=== PATIENT | female | born 1965 | race Caucasian/White ===

== ENCOUNTER 2016-06-30 14:28 | Emergency (ER) | payer OTHER ==
[~2016-06-30] VITALS: Ht 160 cm; Wt 59.5 kg
[2016-06-30 14:31] VITALS: Ht 160 cm; Wt 59.5 kg
[2016-06-30] MEDS ORDERED: NICARDipine HCL 30 MG CAPSULE PO ONE (15:30)
[2016-06-30] MEDS ORDERED: HYDROCODONE/APAP (5/325) TAB PO ONE (15:30)
[2016-06-30 15:45] LABS: URINE BLOOD (Dip) POC 3+ (NEGATIVE)
[2016-06-30] MEDS ORDERED: IBUP-1542 PO (15:48)
[2016-06-30] MEDS ORDERED: ONDA4TAB8 PO (15:48)
[2016-06-30] MEDS ORDERED: HYDR-906 PO (15:48)
--- NOTE | 2016-06-30 15:58 | ERD ---
ER Documentation Chief Complaint Date/Time DATE: 06/30/16 TIME: 15:52 Chief Complaint headcahe x few weeks, was seen by pmd yesterday, vomiting today HPI 51-year-old female brought in by her daughter complaining of nausea, vomiting and dizziness this morning. Patient is also complaining of headache for 1 month. Patient saw her PMD yesterday she was started on lisinopril and baclofen. Patient has history of hypertension, hyperlipidemia and borderline DM. He also takes simvastatin, metformin and ASA. Patient states that her headache starts from the frontal and radiates to the occipital area. Denies any recent history of fever, chest pain, syncope, cough, shortness of breath, abdominal pain, focal weakness or numbness. ROS All systems reviewed and are negative except as per history of present illness. Medications Home Meds Active Scripts Ondansetron Hcl* (Zofran*) 4 Mg Tablet, 4 MG PO Q6H for NAUSEA AND/OR VOMITING, #30 TAB Prov:BONITA TAVERAS 06/30/16 Hydrocodone/Acetaminophen ([place] 5-325 Tablet) 1 Each Tablet, 1 TAB PO Q6H Y for PAIN, #7 TAB Prov:BONITA TAVERAS 06/30/16 Allergies Allergies: Coded Allergies: No Known Allergy (Unverified , 02/06/13) PMhx/Soc History of Surgery: Yes (C SECTION 4X) Anesthesia Reaction: No Hx Neurological Disorder: No Hx Respiratory Disorders: No Hx Cardiac Disorders: No Hx Psychiatric Problems: No Hx Miscellaneous Medical Probl: Yes (HYPERCHOLESTEROLEMIA, HTN) Hx Alcohol Use: No Hx Substance Use: No Hx Tobacco Use: No Smoking Status: Never smoker Physical Exam Vitals Vital Signs Date Time Temp Pulse Resp B/P Pulse Ox O2 Delivery O2 Flow Rate FiO2 06/30/16 14:31 97.7 74 18 179/80 98 Physical Exam Physical Exam CONST: Well-developed, well-nourished, in no acute distress. Nontoxic in appearance. HEENT: Atraumatic. Normal conjunctiva. EOM intact. TM intact. External ear is normal. Clear oropharnyx without erythema. No uvular deviation. Moist mucous membranes. Supple neck. No meningismus. No submandibular induration. RESP: Clear to auscultation bilaterally. No wheezing. CARDIO: Regular rate and rhythm, no murmurs. ABD: Soft, non tender, non distended. Normal bowel sounds. No McBurney's point tenderness. No guarding or rigidity. No peritoneal signs. SKIN: No petechiae or rashes. BACK: No midline or flank tenderness. EXT: No cyanosis or edema. Distal pulses equal and bilateral. NEURO: Awake and alert, appropriate for age. Results 24 hrs Laboratory Tests Test 06/30/16 15:44 Bedside Urine pH (LAB) 5.0 Bedside Urine Protein (LAB) Negative Bedside Urine Glucose (UA) Negative Bedside Urine Ketones (LAB) Negative Bedside Urine Blood 3+ Bedside Urine Nitrite (LAB) Negative Bedside Urine Leukocyte Esterase (L Negative Current Medications Medications (Trade) Dose Ordered Sig/Anneliese Route PRN Reason Start Time Stop Time Status Last Admin Dose Admin Acetaminophen/ Hydrocodone Bitart ([place] (5/325)) 1 tab ONCE ONCE PO 06/30/16 15:30 06/30/16 15:31 DC 06/30/16 15:39 Nicardipine HCl (Cardene) 30 mg ONCE ONCE PO 06/30/16 15:30 06/30/16 15:31 DC 06/30/16 15:39 PROCEDURE: CT Brain without. CLINICAL INDICATION: Headache. TECHNIQUE: A CT of the brain was performed on multidetector high-resolution CT scanner utilizing axial sections from the skull base through the vertex without contrast. The scan was reviewed in soft tissue brain and high frequency resolution bone algorithm windows. Images were reviewed on a high- resolution PACS workstation. One or more the following does reduction techniques were utilized: Automated exposure control, adjustment of the mA/ or kV according to patient's size, or use of iterative reconstruction technique. The exam CTDI = 44.63 mGy and the DLP = 633.2 mGy-cm. COMPARISON: None available. FINDINGS: The ventricles and sulci are minimal prominent indicative of volume loss. There is no intracranial hemorrhage, mass effect or midline shift. No abnormal intra- axial or extra-axial fluid collections are seen. The ramirez/white matter differentiation is preserved. There are minimal scattered foci of hypoattenuation in the white matter, which are nonspecific in etiology but likely reflect chronic small vessel ischemic changes. The visualized paranasal sinuses are essentially clear. IMPRESSION: 1. No acute intracranial hemorrhage, transcortical infarction or mass effect. 2. Minimal chronic small vessel ischemic changes. 3. Minimal generalized cerebral volume loss. RPTAT: EE .Yasemin Dawkins MD, Date Time Electronically viewed and signed by .Yasemin Dawkins MD, on 06/30/2016 16:23 Procedures/[facility] EMERGENCY DEPARTMENT COURSE/MEDICAL DECISION MAKING This is a 51-year-old female who comes to the emergency room secondary to complaints of headache for 1 month and an episode of nausea, vomiting and dizziness this morning. Patient has history of hypertension and she started on lisinopril and baclofen yesterday The patient was given [place] and Cardene for VT=254/80. On re-evaluation, the patient's BP improved to 130/69. CT of the brain was done and was interpreted by a radiologist. Result is negative for intracranial hemorrhage or infarct. My primary diagnosis is headache. Secondary diagnosis is hypertension Differential diagnoses considered but not limited to CVA, [place], temporal arteritis , migraine. Pt is hemodynamically stable upon reassessment. The patient was discharged for outpatient management with a prescription for [place] and Zofran. The patient was advised to followup with their PMD in 1-2 days and to return to the Emergency Department if there are any new or worsening symptoms. The patient understood and agreed with the diagnosis, treatment and plan. Patient is stable for discharge at this time. Departure Diagnosis: Primary Impression: Headache Headache type: unspecified Headache chronicity pattern: acute headache Intractability: intractable Qualified Code: R51 - Acute intractable headache , unspecified headache type Additional Impression: Hypertension Hypertension type: unspecified secondary hypertension Qualified Code: I15.9 - Secondary hypertension Condition: Stable Patient Instructions: Self-Care for Headaches, High Blood Pressure ( Hypertension) Additional Instructions: Call your primary care doctor tomorrow for an appointment during the next 1-2 days. Return to the emergency department immediately should you have any new or worsening symptoms. Take all medications as directed. BONITA TAVERAS Jun 30, 2016 15:58
--- NOTE | 2016-06-30 16:23 | RADRPT ---
PROCEDURE: CT Brain without. CLINICAL INDICATION: Headache. TECHNIQUE: A CT of the brain was performed on multidetector high-resolution CT scanner utilizing a xial sections from the skull base through the vertex without contrast. The scan was reviewed in sof t tissue brain and high frequency resolution bone algorithm windows. Images were reviewed on a high -resolution PACS workstation. One or more the following does reduction techniques were utilized: Aut omated exposure control, adjustment of the mA/ or kV according to patient's size, or use of iterativ e reconstruction technique. The exam CTDI = 44.63 mGy and the DLP = 633.2 mGy-cm. COMPARISON: None available. FINDINGS: The ventricles and sulci are minimal prominent indicative of volume loss. There is no intracranial h emorrhage, mass effect or midline shift. No abnormal intra-axial or extra-axial fluid collections a re seen. The ramirez/white matter differentiation is preserved. There are minimal scattered foci of hypoattenuation in the white matter, which are nonspecific in et iology but likely reflect chronic small vessel ischemic changes. The visualized paranasal sinuses ar e essentially clear. IMPRESSION: 1. No acute intracranial hemorrhage, transcortical infarction or mass effect. 2. Minimal chronic small vessel ischemic changes. 3. Minimal generalized cerebral volume loss. RPTAT: EE .Yasemin Dawkins MD, MD Date Time Electronically viewed and signed by .Yasemin Dawkins MD, MD on 06/30/2016 16:23 .N/
[2016-06-30 16:32] VITALS: BP 130/69; PULSE 66; RESP 18; TEMP 98
== END 2016-06-30 16:38 | disposition home or self-care (01) ==
LOC: FTE 14:28
DX: R51 Headache (principal); R40.2252 Coma scale, best verbal response, oriented, at arrival to emergency department; I15.9 Secondary hypertension, unspecified; R40.2362 Coma scale, best motor response, obeys commands, at arrival to emergency department; R40.2142 Coma scale, eyes open, spontaneous, at arrival to emergency department
CPT/HCPCS: 70450; 81003; Z7502; Z7610